=== PATIENT | female | born 1995 ===

== ENCOUNTER 2017-02-22 19:32 | Emergency (ER) | payer MEDICAID ==
[2017-02-22 19:58] VITALS: RESP 18
[2017-02-22 21:00] LABS: BASO # 0.1 K/uL (0.0-0.2); BASO % 0.5 % (0.0-2.0); EOS # 0.3 K/uL (0.0-0.7); HEMATOCRIT 42.3 % (34.0-47.0); LYMPH % 35.2 % (20.0-40.0); MEAN CELL VOLUME 89.4 fL (81.0-99.0); MEAN CORPUSCULAR HGB CONC 32.5 g/dL (33.0-37.0); MEAN PLATELET VOLUME 7.6 fL (7.2-11.7); MONO # 0.6 K/uL (0.0-0.8); MONO % 5.6 % (0.0-10.0); RED CELL DISTRIBUTION WIDTH 13.2 % (11.5-14.5); WHITE BLOOD COUNT 11.3 K/uL (4.8-10.8)
[2017-02-22 21:05] LABS: CHLORIDE 101 mmol/L (98-107)
[2017-02-22 21:06] LABS: POTASSIUM 3.7 mmol/L (3.6-5.2); SODIUM 139 mmol/L (132-148)
[2017-02-22 21:08] LABS: ALB/GLOB RATIO 1.3 (1.0-2.1); ALKALINE PHOSPHATASE 34 U/L (38-126); AST/SGOT 25 U/L (14-36); BILIRUBIN,TOTAL 0.3 mg/dL (0.2-1.3); BLOOD UREA NITROGEN 12 mg/dL (7-17); CARBON DIOXIDE 22 mmol/L (22-30); GFR AFRICAN-AMERICAN > 60; GLUCOSE,RANDOM 145 mg/dL (65-105); TOTAL PROTEIN 7.4 g/dL (6.3-8.3)
[2017-02-22 21:09] LABS: ALT/SGPT 24 U/L (9-52); CALCIUM 8.8 mg/dl (8.6-10.4)
[2017-02-22 21:13] LABS: RBC URINE 1 /hpf (0-3); URINE BACTERIA MANY (<OCC); URINE BILIRUBIN NEGATIVE (NEGATIVE); URINE BLOOD NEGATIVE (NEGATIVE); URINE COLOR Yellow (YELLOW); URINE GLUCOSE (UA) NORMAL (Normal); URINE KETONE NEGATIVE (NEGATIVE); URINE PROTEIN NEGATIVE (NEGATIVE); URINE UROBILINOGEN NORMAL mg/dL (0.2-1.0); WBC URINE 5 /hpf (0-5)
[2017-02-22 21:15] LABS: URINE LEUKOCYTE ESTERASE TRACE Leu/uL (Negative)
--- NOTE | 2017-02-22 21:26 | C.PDOC ---
History Of Present Illness 21 year old patient presents to the ED complaining of a slight stabbing pain in the LLQ for the past 2 weeks since her last menstrual cycle. Patient requests a repeat pelvic US to evaluate the ovarian cyst she claims was noted on 12/2016. Patient denies fever, chills, nausea or vomiting. Time Seen by Provider: 02/22/17 21:13 Chief Complaint (Nursing): Abdominal Pain History Per: Patient History/Exam Limitations: no limitations Onset/Duration Of Symptoms: Other (2 weeks) Current Symptoms Are (Timing): Still Present Context: Other Severity: Mild Pain Scale Rating Of: 3 Location Of Pain/Discomfort: LLQ Radiation Of Pain To:: None Quality Of Discomfort: Stabbing, "Pain" Exacerbating Factors: None Alleviating Factors: None Last Bowel Movement: Today Recent travel outside of the [place]: No Abnormal Vaginal Bleeding: No Past Medical History Reviewed: Historical Data, Nursing Documentation, Vital Signs Vital Signs: Last Vital Signs Temp 98.2 F 02/22/17 21:43 Pulse 85 02/22/17 21:43 Resp 18 02/22/17 21:43 BP 120/80 02/22/17 21:43 Pulse Ox 100 02/23/17 01:51 Family History: States: Unknown Family Hx - Social History Hx Tobacco Use: Yes Hx Alcohol Use: Yes Hx Substance Use: No - Immunization History Hx Tetanus Toxoid Vaccination: No Hx Influenza Vaccination: Yes Hx Pneumococcal Vaccination: No Review Of Systems Except As Marked, All Systems Reviewed And Found Negative. Constitutional: Negative for: Fever, Chills Gastrointestinal: Positive for: Abdominal Pain (LLQ). Negative for: Nausea, Vomiting Physical Exam - Physical Exam Appears: Non-toxic, No Acute Distress, Other (obese) Skin: Warm, Dry Head: Atraumatic, Normacephalic Eye(s): bilateral: PERRL, EOMI Neck: Normal ROM, Supple Chest: Symmetrical Cardiovascular: Rhythm Regular Respiratory: Normal Breath Sounds, No Rales, No Rhonchi, No Wheezing Gastrointestinal/Abdominal: Soft, No Tenderness, No Guarding, No Rebound, Other Back: Normal Inspection, No CVA Tenderness Extremity: Normal ROM Neurological/Psych: Oriented x3, Normal Speech, Normal Cognition Gait: Steady ED Course And Treatment - Laboratory Results Result Diagrams: 02/22/17 20:52 02/22/17 20:52 O2 Sat by Pulse Oximetry: 100 (RA) Pulse Ox Interpretation: Normal Progress Note: Plan: Labs Medical Decision Making Medical Decision Making: seeking repeat pelvic US for eval of ovarian cysts but pelvic US 12/25 shows no ovarian cysts taking Naproxyn for vague abd discomfort wtih improvement defers further w/u in favor of opt MEDICATION NURSE f/u. Patient had a CT of her head on 02/2016. Also a CT of her abdomen/pelvis 01/2016 which was significant only for constipation. Patient had a pelvic US 12/2016 which showed ovarian follicles, but no cyst. The difference was explained to the patient that after her menstrual cycle it is Mittelschmerz pain which is due to ovulation. Patient is encouraged to follow up with local test engineering intern. Disposition Doctor Will See Patient In The: Office Counseled Patient/Family Regarding: Studies Performed, Diagnosis - Disposition Referrals: [facility] [Outside] [facility] [Outside] Disposition: HOME/ ROUTINE Disposition Time: 21:25 Condition: GOOD Additional Instructions: continue naproxyn for your lower abd discomforts your pelvic ultrasound 12/25 shows NO ovarian cysts (small ovarian follicles are a normal finding) Follow-up in our outpatient [facility] [place] or the OBGYN of your choice. Instructions: Acute Abdominal Pain (ED) Forms: School Excuse - Clinical Impression Clinical Impression: Abdominal pain - Scribe Statement The provider has reviewed the documentation as recorded by the Scribe Carla Ribera Provider Attestation: All medical record entries made by the Scribe were at my direction and personally dictated by me. I have reviewed the chart and agree that the record accurately reflects my personal performance of the history, physical exam, medical decision making, and the department course for this patient. I have also personally directed, reviewed, and agree with the discharge instructions and disposition.
[2017-02-22 21:45] VITALS: BP 120/80; PULSE 85; TEMP 98.2
[2017-02-22 23:36] VITALS: O2SAT 100
== END 2017-02-22 21:52 | disposition home or self-care (01) ==
LOC: C.ER 19:32
DX: R10.32 Left lower quadrant pain (principal)

== ENCOUNTER 2018-09-12 17:35 | Emergency (ER) | payer MEDICAID ==
[2018-09-12] MEDS ORDERED: Sodium Chloride 0.9% 1,000 ML IV ONE (18:53)
[2018-09-12] MEDS ORDERED: Acetaminophen 650mg/20.3ml solution UD PO STA (18:54)
[2018-09-12 19:02] LABS: BASO # 0.1 K/uL (0.0-0.2); BASO % 0.5 % (0.0-2.0); EOS # 0.3 K/uL (0.0-0.7); EOS % 2.6 % (0.0-4.0); HEMOGLOBIN 14.8 g/dL (11.0-16.0); LYMPH % 39.3 % (20.0-40.0); MEAN CELL VOLUME 89.2 fL (81.0-99.0); MEAN CORPUSCULAR HEMOGLOBIN 29.8 pg (27.0-31.0); MEAN CORPUSCULAR HGB CONC 33.4 g/dL (33.0-37.0); MEAN PLATELET VOLUME 7.4 fL (7.2-11.7); MONO # 0.9 K/uL (0.0-0.8); MONO % 8.8 % (0.0-10.0); NEUT % 48.8 % (50.0-75.0); NRBC % 0.1 % (0.0-2.0); RBC 4.97 Mil/uL (3.80-5.20); RED CELL DISTRIBUTION WIDTH 12.8 % (11.5-14.5); WHITE BLOOD COUNT 10.2 K/uL (4.8-10.8)
[2018-09-12 19:13] LABS: INR 1.2; PROTHROMBIN TIME 12.7 SECONDS (9.7-12.2)
[2018-09-12 19:14] LABS: ALB/GLOB RATIO 1.4 (1.0-2.1); ALBUMIN 4.2 g/dL (3.5-5.0); ALT/SGPT 15 U/L (9-52); AST/SGOT 17 U/L (14-36); BLOOD UREA NITROGEN 7 mg/dL (7-17); CALCIUM 8.5 mg/dl (8.6-10.4); GFR NON-AFRICAN AMERICAN > 60; LIPASE 94 U/L (23-300)
[2018-09-12 19:18] LABS: SQUAMOUS EPITHIAL 6 /hpf (0-5); URINE AMORPHOUS SEDIMENT OCC /ul (<OCC); URINE BACTERIA FEW (<OCC); URINE BILIRUBIN NEGATIVE (NEGATIVE); URINE BLOOD NEGATIVE (NEGATIVE); URINE CLARITY Hazy (Clear); URINE COLOR Yellow (YELLOW); URINE GLUCOSE (UA) NORMAL (Normal); URINE HYALINE CAST 0-2 /lpf (0-2); URINE LEUKOCYTE ESTERASE TRACE Leu/uL (Negative); URINE PROTEIN NEGATIVE (NEGATIVE); URINE UROBILINOGEN NORMAL mg/dL (0.2-1.0)
[2018-09-12 19:20] LABS: HCG,QUALITATIVE URINE NEGATIVE (NEGATIVE)
[2018-09-12] MEDS ORDERED: cefTRIAXone IV 1 gm in Dextros 50 ML IVPB ONE (19:23)
[2018-09-12] MEDS ORDERED: cefTRIAXone 1 gm 1 GM/100 ML BAG IVPB ONE (19:54)
[2018-09-12] MEDS ORDERED: Sodium Chloride 0.9% 1,000 ML ONE (19:54)
[2018-09-12 20:41] VITALS: BP 108/74; PULSE 57; RESP 20; TEMP 98.2; O2SAT 99
--- NOTE | 2018-09-14 15:02 | C.PDOC ---
History Of Present Illness 23 yo female, presents iwth abd pain x 1 day, dysuria. no fevers or other complaints Time Seen by Provider: 09/12/18 18:35 Chief Complaint (Nursing): Abdominal Pain Past Medical History Reviewed: Historical Data, Nursing Documentation, Vital Signs Vital Signs: Last Vital Signs Temp 98.2 F 09/12/18 20:40 Pulse 57 L 09/12/18 20:40 Resp 20 09/12/18 20:40 BP 108/74 09/12/18 20:40 Pulse Ox 99 09/12/18 20:40 Family History: States: Unknown Family Hx - Social History Hx Tobacco Use: Yes Hx Alcohol Use: Yes Hx Substance Use: No - Immunization History Hx Tetanus Toxoid Vaccination: No Hx Influenza Vaccination: Yes Hx Pneumococcal Vaccination: No Review Of Systems Gastrointestinal: Positive for: Abdominal Pain Physical Exam - Physical Exam Appears: Well, No Acute Distress Skin: Normal Color, Warm, Dry Eye(s): bilateral: Normal Inspection, PERRL, EOMI Nose: Normal Throat: Normal Neck: Normal Cardiovascular: Rhythm Regular Respiratory: Normal Breath Sounds Gastrointestinal/Abdominal: Normal Exam, Soft, Tenderness (suprapubic.) Back: Normal Inspection Extremity: Normal ROM ED Course And Treatment - Laboratory Results Result Diagrams: 09/12/18 18:59 09/12/18 18:59 O2 Sat by Pulse Oximetry: 99 Medical Decision Making Medical Decision Making: no rlq ttp. urine positive will treat. advise outpt fu. Disposition - Disposition Disposition: HOME/ ROUTINE Disposition Time: 15:00 Condition: STABLE Additional Instructions: return to er with worsening symptoms or concerns. Prescriptions: Cefpodoxime [Vantin] 100 mg PO BID #14 tab Instructions: Urinary Tract Infections in Adults, Acute Abdomen (Belly Pain) Forms: [employer] (Martiniquais) - Clinical Impression Clinical Impression: Abdominal pain, Urinary tract infection
== END 2018-09-12 20:41 | disposition home or self-care (01) ==
LOC: C.ER 17:35
DX: N39.0 Urinary tract infection, site not specified (principal); R10.9 Unspecified abdominal pain
CPT/HCPCS: 80053; 81001; 83690; 84703; 85025; 85610; 85730; 99285; J7030